=== PATIENT | male | born 1985 | race Two or more races ===

== ENCOUNTER 2017-04-29 00:38 | Emergency (ER) | payer SELFPAY ==
[2017-04-29] MEDS: KETOROLAC 60 MG INJ IM (03:20)
[2017-04-29] MEDS: ACETAMINOPHEN 325 MG TAB PO (03:20)
== END 2017-04-29 04:13 | disposition home or self-care (01) ==
LOC: FTE 00:38
DX: J20.9 Acute bronchitis, unspecified (principal); F17.210 Nicotine dependence, cigarettes, uncomplicated
CPT/HCPCS: 96372; 99284-25

== ENCOUNTER 2017-09-16 20:55 | Emergency (ER) | payer MEDICAID ==
[2017-09-16] MEDS: MECLIZINE 12.5 MG TAB PO (21:42)
[2017-09-16] MEDS: ONDANSETRON 4 MG INJ IV (21:42)
[2017-09-16] MEDS: SOD CHLORIDE 0.9% 1,000 ML IV (21:42)
[2017-09-16 21:47] LABS: WHITE BLOOD COUNT 9.3 10^3/ul (4.8-10.8)
[2017-09-16 21:47] LABS: ADD MAN DIFF? NO; BASOPHILS % 0.4 % (0.0-2.0); EOSINOPHILS % 0.3 % (0.0-7.0); HEMATOCRIT 44.9 % (42.0-52.0); LYMPHOCYTES # 0.9 10^3/ul (0.8-2.9); LYMPHOCYTES % 9.1 % (15.0-51.0); MEAN CORPUSCULAR HGB CONC 35.6 g/dl (32.0-37.0); MEAN CORPUSCULAR VOLUME 89.8 fl (82.0-101.0); MONOCYTE # 0.4 10^3/ul (0.3-0.9); MONOCYTES % 4.2 % (0.0-11.0); NEUTROPHILS % 85.6 % (39.0-77.0); PLATELET COUNT 217 10^3/UL (140-415); RED CELL DISTRIBUTION WIDTH 12.4 % (11.5-14.5)
[2017-09-16 22:05] LABS: ANION GAP 19 (8-16); BLOOD UREA NITROGEN 17 mg/dl (7-20); CALCIUM 9.8 mg/dl (8.4-10.2); CARBON DIOXIDE 25 mmol/L (21-31); CHLORIDE 105 mmol/L (97-110); CREATININE 0.72 mg/dl (0.61-1.24); GLUCOSE 93 mg/dl (70-220); POTASSIUM 4.7 mmol/L (3.5-5.1); SODIUM 144 mmol/L (135-144)
[2017-09-16 22:23] LABS: TROPONIN-I < 0.012 ng/ml (0.000-0.120)
== END 2017-09-16 23:13 | disposition home or self-care (01) ==
LOC: FTE 20:55
DX: R07.9 Chest pain, unspecified (principal); R00.2 Palpitations; R20.2 Paresthesia of skin; F17.210 Nicotine dependence, cigarettes, uncomplicated
CPT/HCPCS: 36415; 71045; 80048; 84484; 85025; 93005; 96374; 99285-25